=== PATIENT | male | born 1955 | race Caucasian/White ===

== ENCOUNTER 2018-06-11 07:49 | Inpatient (IN) | payer MEDICARE | END 2018-06-14 13:04 | LOC: ER 07:49 → ED HOLD 12:38 → ORTHO 4S 15:16 | DX: S32.029A Unspecified fracture of second lumbar vertebra, initial encounter for closed fracture (principal); R55 Syncope and collapse; I25.10 Atherosclerotic heart disease of native coronary artery without angina pectoris ==